=== PATIENT | female | born 1965 | race Caucasian/White ===

== ENCOUNTER 2016-08-14 06:37 | Emergency (ER) | payer OTHER | END 2016-08-14 07:46 | disposition home or self-care (01) | LOC: ER 06:37 | DX: J04.0 Acute laryngitis (principal); J06.9 Acute upper respiratory infection, unspecified; J32.9 Chronic sinusitis, unspecified; E03.9 Hypothyroidism, unspecified; F41.9 Anxiety disorder, unspecified; F32.9 Major depressive disorder, single episode, unspecified; Z90.49 Acquired absence of other specified parts of digestive tract; Z88.5 Allergy status to narcotic agent; Z88.0 Allergy status to penicillin; Z79.899 Other long term (current) drug therapy | CPT/HCPCS: 87651 ==